=== PATIENT | female | born 1940 | race Caucasian/White ===

== ENCOUNTER 2018-04-24 11:41 | Emergency (ER) | payer MEDICARE, BC ==
[~2018-04-24] VITALS: Ht 162.6 cm; Wt 57.2 kg
[2018-04-24] MEDS ORDERED: TRAM50TA2 PO (12:01)
[2018-04-24] MEDS ORDERED: OMEP20CA10 PO (12:01)
[2018-04-24 12:28] LABS: CARBON DIOXIDE 29 mmol/L (21-32); CHLORIDE 101 mmol/L (98-107); GLUCOSE 98 mg/dL (74-106); UREA NITROGEN, BLOOD 24 mg/dL (7-18)
[2018-04-24 12:29] LABS: *BLOOD, URINE NEGATIVE (NEGATIVE); *CLARITY,URINE CLOUDY (CLEAR); *COLOR,URINE DARK YELLOW (YELLOW); *KETONES,URINE 1+ (NEGATIVE); *PROTEIN,URINE 1+ (NEGATIVE); *UROBILINOGEN,URINE 0.2 E.U./dl (NORMAL); LEUKOCYTE ESTERASE ,URINE 1+ (NEGATIVE); NITRITE, URINE NEGATIVE (NEGATIVE); PH,URINE 5.5 (5.0-8.0); UGLUCOSE NEGATIVE (NEGATIVE)
[2018-04-24 12:29] LABS: BASOPHILS # (AUTO) 0.1 K/uL (0.0-8.0); BASOPHILS % (AUTO) 0.9 % (0.0-2.0); EOSINOPHILS # (AUTO) 0.1 K/uL (0.0-0.7); EOSINOPHILS % (AUTO) 1.1 % (0.0-7.0); HEMATOCRIT 44.5 % (31.2-41.9); LYMPHOCYTES # (AUTO) 1.3 K/uL (20.0-40.0); LYMPHOCYTES % (AUTO) 20.2 % (20.5-51.5); MEAN CORPUSCULAR HEMOGLOBIN 31.7 uug (24.7-32.8); MEAN CORPUSCULAR HGB CONC 34 g/dL (32.3-35.6); MEAN CORPUSCULAR VOLUME 94.2 fL (75.5-95.3); MONOCYTES # (AUTO) 0.5 K/uL (2.0-10.0); MONOCYTES % (AUTO) 7.5 % (0.0-11.0); NEUTROPHILS # (AUTO) 4.5 K/uL (1.8-8.9); NEUTROPHILS % (AUTO) 70.3 % (38.5-71.5); PLATELET COUNT (AUTO) 232 K/uL (179-408); RED BLOOD CELL COUNT(AUTO) 4.72 MIL/uL (3.63-4.92); WHITE BLOOD COUNT (AUTO) 6.3 K/uL (3.8-11.8)
[2018-04-24 12:32] LABS: *BILIRUBIN,URIN 2+ (NEGATIVE)
[2018-04-24 12:34] LABS: ALANINE AMINOTRANSFERASE 22 U/L (14-59); ALKALINE PHOSPHATASE 97 U/L (50-136); ASPARTATE AMINOTRANSFERASE 17 U/L (15-37); BILIRUBIN,DIRECT 0.2 mg/dL (0.0-0.2); BILIRUBIN,TOTAL 0.5 mg/dL (0.2-1.0); LIPASE 96 U/L (73-393); TOTAL PROTEIN, SERUM 7.7 g/dL (6.4-8.2)
[2018-04-24 12:48] LABS: BACTERIA,URINE MODERATE /HPF (NONE SEEN); SQUAMOUS EPITHELIAL CELL,UR MODERATE /HPF (NONE SEEN)
[2018-04-24 12:49] LABS: CALCIUM OXALATE CRYSTALS,UR MANY /HPF (NONE SEEN)
[2018-04-24 12:50] LABS: MUCUS,URINE FEW /LPF (0-FEW)
[2018-04-24] MEDS ORDERED: CEFTRIAXONE 1 G VIAL ONE (13:24)
[2018-04-24] MEDS ORDERED: CEFTRIAXONE 1 G in IV DEXTROSE 5% 50 ML IV ONE (13:30)
[2018-04-24 13:35] VITALS: BP 141/88
--- NOTE | 2018-04-24 13:36 | NUR ---
Patient discharged to home in stable conditon. Written and verbal after care instructions given. Patient verbalizes understanding of instructions.PT WALKS IN STEADY GAIT.
== END 2018-04-24 13:57 | disposition home or self-care (01) ==
LOC: ER 11:41
DX: N39.0 Urinary tract infection, site not specified (principal); R10.32 Left lower quadrant pain; K21.9 Gastro-esophageal reflux disease without esophagitis
CPT/HCPCS: 36415; 74176; 80048; 80076; 81001; 83690; 85025; 87077; 87086; 87186; 96365; 99284; J0696; A4663; J3490

== ENCOUNTER 2021-12-10 12:44 | Emergency (ER) | payer MEDICARE, BC ==
[~2021-12-10] VITALS: Ht 162.6 cm; Wt 52.2 kg
[~2021-12-10 12:44] MED LIST: OMEP20CA15 PO; TRAM50TA2 PO
--- NOTE | 2021-12-10 12:58 | NUR ---
PATIENT WAS MSE BY DR CABEZAS IN ROOM 04B.
--- NOTE | 2021-12-10 14:21 | NUR ---
DR CABEZAS MADE PATIENT AWARE OF TEST RESULTS.
[2021-12-10 14:24] VITALS: BP 158/94
== END 2021-12-10 14:30 | disposition home or self-care (01) ==
LOC: ER 12:44
DX: S09.93XA Unspecified injury of face, initial encounter (principal); S00.83XA Contusion of other part of head, initial encounter; S80.00XA Contusion of unspecified knee, initial encounter; W18.30XA Fall on same level, unspecified, initial encounter; Y92.89 Other specified places as the place of occurrence of the external cause; Y99.8 Other external cause status; R25.2 Cramp and spasm; I10 Essential (primary) hypertension; K21.9 Gastro-esophageal reflux disease without esophagitis
CPT/HCPCS: 70450; 70486; A4663